=== PATIENT | female | born 1980 | race Caucasian/White ===

== ENCOUNTER 2021-06-24 23:21 | Emergency (ER) | payer BC ==
[~2021-06-24] VITALS: Ht 165.1 cm; Wt 113.6 kg
[~2021-06-24 23:21] MED LIST: CEPH-585 PO; METR-159 PO; POTA20TA19 PO
[2021-06-24 23:35] VITALS: BP 179/103
== END 2021-06-25 03:45 | disposition left against medical advice (07) ==
LOC: ER 23:22
DX: R21 Rash and other nonspecific skin eruption (principal); Z53.21 Procedure and treatment not carried out due to patient leaving prior to being seen by health care provider